=== PATIENT | male | born 1930 | race Caucasian/White ===

== ENCOUNTER 2018-11-11 10:48 | Emergency (ER) | payer OTHER, MEDICARE ==
[~2018-11-11] VITALS: Ht 175.3 cm; Wt 99.8 kg
[2018-11-11 10:48] VITALS: BP_SYST 109
[2018-11-11] MEDS ORDERED: traMADol HCL HCL 50 MG TABLET (ULTRAM) PO ONE (11:15)
[2018-11-11 12:25] VITALS: BP_SYST 113
== END 2018-11-11 12:25 | disposition home or self-care (01) ==
LOC: SED 10:48
DX: S30.0XXA Contusion of lower back and pelvis, initial encounter (principal); K21.9 Gastro-esophageal reflux disease without esophagitis; Z86.73 Personal history of transient ischemic attack (TIA), and cerebral infarction without residual deficits; W18.09XA Striking against other object with subsequent fall, initial encounter; Y93.89 Activity, other specified; Y92.89 Other specified places as the place of occurrence of the external cause; Y99.8 Other external cause status
CPT/HCPCS: 72100-TC; 99283